=== PATIENT | male | born 1950 | race Caucasian/White ===

== ENCOUNTER 2023-03-02 01:17 | Emergency (ER) | payer MEDICARE, BC ==
[~2023-03-02] VITALS: Ht 175.3 cm; Wt 63.5 kg
[~2023-03-02 01:17] MED LIST: CEPHALEXIN500 MG PO
[2023-03-02 01:25] VITALS: BP 154/101
[2023-03-02] MEDS ORDERED: AMOXICILLIN500 MG PO (01:44)
[2023-03-02 01:45] VITALS: BP 211/123
[2023-03-02 01:52] VITALS: BP 132/96
== END 2023-03-02 01:58 | disposition home or self-care (01) ==
LOC: ED 01:17
DX: H66.92 Otitis media, unspecified, left ear (principal); J06.9 Acute upper respiratory infection, unspecified